=== PATIENT | male | born 1955 | race Caucasian/White ===

== ENCOUNTER 2025-02-08 08:07 | Emergency (ER) | payer MEDICARE, BC, SELFPAY ==
--- NOTE | 2025-02-08 08:10 | ED_ITS ---
HPI - Extremity Problem General Chief complaint: Extremity Problem,Nontraumatic Stated complaint: r thigh/knee pain Time Seen by Provider: 02/08/25 08:09 Source: patient Mode of arrival: ambulatory Limitations: no limitations History of Present Illness HPI Narrative: Stefano is a 69-year-old male patient presenting to the clinic today with complaints of right thigh pain x3 days. He reports he recently fractured his ribs on January 20 after having a syncopal episode. Recently traveled from [place] to [place] (2 weeks ago). He denies any chest pain or shortness of breath. States he developed pain in his right thigh with swelling and a lump 3 days ago. He is concerned for a blood clot. Related Data Home Medications ?Medication ?Instructions ?Recorded ?Confirmed ?Last Taken ?Type No Home Medications 02/08/25 02/08/25 U nknown History Allergies Allergy/AdvReac Type Severity Reaction Status Date / Time Penicillins Allergy Mild Hives Verified 02/08/25 08:25 Review of Systems Review of Systems: Pertinent positives per HPI. Patient denies any fever, chills, rash, headache, visual changes, dizziness, cough, runny nose, sore throat, shortness of breath, chest pain, palpitations, nausea, vomiting, diarrhea, constipation, abdominal pain, or any urinary issues. PMFSH Comments At the time of my signature, I reviewed and agree with the nursing past medical, surgical, social, and family history. There is no relevant family history pertinent to the patient complaint. Exam Narrative: General: Well-developed, well nourished, in no apparent distress Head: Normocephalic, atraumatic. Cardio: Regular rate and rhythm, s1 and s2 normal, no murmur appreciated. Resp: Clear to auscultation bilaterally, no rhonchi, rales, wheezing or rubs. Musculoskeletal: No deformity, tender to palpation with small mass area to the right anterior medial thigh, grossly normal range of motion, muscle strength strong and equal, peripheral pulse strong, no edema, no cyanosis, normal gait and station Course Course Level of Care: Express Care Visit Transfer Transfered to: [facility] Transportation: Other (Private car) Transfer rationale: Right anterior thigh mass-rule out DVT Accepting physician: Dr. Santiago Transfer comments: POV MDM MDM Narrative Medical decision making narrative: At the time of visit patient is resting comfortably on the exam table. Patient appears to be nontoxic. Complaints of right thigh pain x3 days. He reports he recently fractured his ribs on January 20 after having a syncopal episode. He denies any chest pain or shortness of breath. States he developed pain in his right thigh with swelling and a lump 3 days ago. He is concerned for a blood clot. On exam patient has tender to palpation with small mass area to the right anterior medial thigh, no edema in the right lower extremity. Patient recently traveled 2 weeks ago from [place] to [facility] and has had a recent rib fracture. Plan: Recommend transfer to the ER for further evaluation rule out DVT. Patient agrees and would like to go to [facility] emergency room. Contacted Dr. Sandy at [facility] and he accepts patient for transfer. Patient to drive himself via POV Differential Diagnosis Differential Diagnosis: Differential diagnostic considerations for extremity problems include sprain/strain, fracture, DVT, herpes zoster, gout, cellulitis, superficial thrombophlebitis, physiologic edema. Discharge Plan Discharge Clinical Impression: Acute pain of right thigh Patient Disposition: Acute Care Hospital Condition: Stable Instructions: Antibiotic Form Patient Language: Indonesian Prescriptions: No Action No Home Medications Follow-up/Referrals: UNKNOWN,DOCTOR [Non-Staff] Time of Disposition: 08:32 Quality NIHSS Nursing Documentation ED NIHSS nursing documentation: reviewed/agree
[2025-02-08 08:21] VITALS: BP 127/83; PULSE 79; RESP 20; TEMP 36.4; O2SAT 100
== END 2025-02-08 08:31 | disposition short-term general hospital (02) ==
PROVIDERS: Emergency Provider Nurse Practitioner Family
DX: M79.651 Pain in right thigh (principal); M25.561 Pain in right knee
CPT/HCPCS: 99212; G0463

== ENCOUNTER 2025-02-08 08:57 | Observation (INO) | payer MEDICARE, SELFPAY ==
[2025-02-08] VITALS (11 sets, daily range): BP systolic 121–144; BP diastolic 71–91; PULSE 63–103; RESP 13–19; TEMP 36.5–36.8; O2SAT 97–100; BMI 29.0
--- NOTE | ~2025-02-08 | CT_ITS ---
CTA CHEST CLINICAL HISTORY: dvt RLE, chest congestion/sob . COMPARISON: None TECHNIQUE: Helical CTA performed from thoracic inlet to upper abdomen IV contrast information not listed in PACS Coronal, sagittal reformats. Multiplanar MIPS CT images acquired with automatic exposure control for dose reduction DLP: 556 mGy-cm FINDINGS: Pulmonary arteries: Large PE bronchus intermedius extending into right middle lobe and extensively into lower lobe segments. Small PE left lower lobe segments. Thoracic Aorta: No dissection or aneurysm. Heart/pericardium: Cardiomegaly. Coronary artery calcification. RV/LV ratio: Minimally elevated at 1.1. Lungs/Pleura: Bibasilar dependent changes. Tracheobronchial tree: Patent. Nodes: No enlarged nodes. Bones: No acute bony abnormality. Soft tissues: Unremarkable. Visualized upper abdomen: Hepatomegaly, with steatosis. Severe pancreatic atrophy IMPRESSION: 1. Large PE right lung. 2. Suspect mild right heart strain. Reviewed, dictated and finalized at location R. GRINDING TECHNICIAN
--- NOTE | ~2025-02-08 | US_ITS ---
EXAMINATION:US venous doppler LE RT INDICATION:Pain and swelling of the right leg TECHNIQUE: Multiple grayscale, color flow and Doppler images of the right lower extremity deep venous systems were obtained and reviewed. COMPARISON:No prior studies for comparison. FINDINGS: There is deep venous thrombosis of the right common femoral vein. There is superficial venous thrombosis of the greater saphenous vein. The superficial femoral and popliteal veins demonstrate normal respiratory variation, augmentation and compressibility. Color flow is also seen within the posterior tibial, peroneal, and profunda veins. IMPRESSION: 1: Partially occlusive deep venous thrombosis right common femoral vein. 2: Superficial venous thrombosis greater saphenous vein. Reviewed, dictated and finalized at location O. ON PICTURE CRITIC
--- NOTE | ~2025-02-08 | US_ITS ---
US venous doppler LE LT INDICATION: Left lower extremity pain and swelling. COMPARISON: None. TECHNIQUE: The deep veins of the left lower extremity were evaluated with Duplex Doppler, color Doppler, and high-resolution B-mode sonography. Evaluated veins include the common femoral, femoral, and popliteal veins. The calf veins were also evaluated. Compression and augmentation maneuvers were performed. FINDINGS: The deep veins of the left lower extremity were compressible and demonstrated spontaneous phasic waveforms with an appropriate response to augmentation maneuvers. The visualized calf veins were patent. IMPRESSION: There was no sonographic evidence of deep vein thrombosis in the left lower extremity. Reviewed, dictated and finalized at location S. LY ENGAGEMENT SPECIALIST IMPRESSION: There was no sonographic evidence of deep vein thrombosis in the left lower ext remity.
--- OUTSIDE RECORDS SUMMARY | 2025-02-08 09:06 | XMS_ITS | Clinical Summary ---
Author Organization [employer] [facility] lin Address [address] [facility] [place] [address] Care Team Providers Care Drawer In Jacquard Loom Name Role Phone No, Pcp ANIMAL ECOLOGIST Primary Care Provider Unavailabl e Allergies No known active allergies Medications CRESTOR 20 mg tablet 11 10/19/2014 Active Immunizations Immunization Administration Dates Next Due Fluarix Quadrivalent Prefilled Syringe 6 Fluzone Quadrivalent Multi-dose Vial (36+ months ) 12/12/2014 Social History Tobacco Use Types Packs/Day Years Used Date Smoking Tobacco: Never Assessed Sex and Gender Information Value Date Recorded Sex Assigned at Not on file Legal Sex Male 11:17 AM EST Gender Identity Not on file Sexual Orientation Not on file Plan of Treatment Not on file Medical Devices Not on file Insurance [facility] [employer] PLANS [place] [id number] Care Teams Drawer In Jacquard Loom Relationship Specialty Start Date End Date No, Pcp, ANIMAL ECOLOGIST N/A Do not use PCP - General 12/12/14
--- NOTE | 2025-02-08 09:35 | ED.EXTPRO ---
HPI - Extremity Problem General Chief complaint: Extremity Problem,Nontraumatic <DEX Nash Last Filed: 02/08/25 17:52> Stated complaint: Swelling/ pain to right leg <DEX Nash Last Filed: 02/08/25 17:52> Time Seen by Provider: 02/08/25 09:11 <DEX Nash Last Filed: 02/08/25 17:52> Source: patient <DEX Nash Last Filed: 02/08/25 17:52> Mode of arrival: ambulatory <DEX Nash Last Filed: 02/08/25 17:52> Limitations: no limitations <DEX Nash Last Filed: 02/08/25 17:52> History of Present Illness HPI Narrative: Patient is a 69 y/o male who presents to the ED with c/o R thigh pain. Patient reports he has had pain throughout his right medial thigh for the past couple of days. States it has been swollen. He iced the leg last night and noted some improvement. Reports some discomfort throughout the thigh. Notes he recently broke a rib on Jan 20 and has been relatively immobile since then. Typically very active. Also reports he drives/travels to/from [place] ([address]) every month to spend time with his grandchildren. Denies history of blood clots. Does note he recently had a URI and has had some cough/chest congestion associated with this. Denies significant SOB/CP. <DEX Nash Last Filed: 02/08/25 17:52> Related Data Home medications: Home Medications ?Medication ?Instructions ?Recorded ?Confirmed ?Last Taken ?Type aspirin 81 mg tablet,delayed 81 mg PO DAILY 02/08/25 02/08/25 02/07/25 History release (Adult Low Dose Aspirin) diphenhydramine HCl 25 mg capsule 50 mg PO HS 02/08/25 02/08/25 Unknown History (Allergy (diphenhydramine)) multivitamin (Daily Multi-Vitamin 1 tablet PO DAILY 02/08/25 02/08/25 02/07/25 History tablet) rosuvastatin 10 mg tablet 10 mg PO DAILY 02/08/25 02/08/25 02/07/25 History tadalafil 10 mg tablet (Cialis) 10 mg PO DAILY PRN sexual activity 02/08/25 02/08/25 Unknown History tamsulosin 0.4 mg capsule 0.4 mg PO DAILY 02/08/25 02/08/25 02/07/25 History <Florinda Denton PA-C - Last Filed: 02/08/25 17:52> Allergies/Adverse reactions: Allergies Allergy/AdvReac Type Severity Reaction Status Date / Time Penicillins Allergy Mild Hives Verified 02/08/25 16:19 <Florinda Denton PA-C - Last Filed: 02/08/25 17:52> Review of Systems Review of Systems: All systems reviewed & are unremarkable except as noted in HPI. <Florinda Denton PA-C - Last Filed: 02/08/25 17:52> All systems reviewed & are unremarkable except as noted in HPI and below <Florinda Denton PA-C - Last Filed: 02/08/25 17:52> [facility] Past Medical History Medical History: Medical History Broken rib Cataracts, bilateral Arthritis Depression Anxiety <DEX Nash Last Filed: 02/08/25 17:52> Surgical History Surgical History: Surgical History H/O knee surgery meniscus repair, left H/O anterior cruciate ligament surgery <Florinda Denton PA-C - Last Filed: 02/08/25 17:52> Family History Family History: Family History Father Congestive heart failure Cerebrovascular accident History of blood clots Acute myocardial infarction Grandparent Diabetes mellitus <DEX Nash Last Filed: 02/08/25 17:52> Social History Social History: Social History Smoking status: Never smoker Alcohol intake: current Drinks per week: 2 Substance use: never Lack of Transportation: No Lack of Food: Never True Current Housing: I Have Housing Concerned About Future Housing: No Difficulty Paying Gas/Electric Bills: No Difficulty Paying for Meds: No Currently Unemployed: No Education: Master's Degree or Higher Difficulty w/ Childcare or Family Care: No Spiritual care concerns: No <Florinda Denton PA-C - Last Filed: 02/08/25 17:52> Exam Narrative: GENERAL: Well appearing, well-nourished, non-toxic, in no acute distress. HEAD: Normocephalic, atraumatic. RESPIRATORY: Airway patent, respirations nonlabored. Clear to auscultation bilaterally, no rales, rhonchi, wheezing. CARDIOVASCULAR: Regular rate and rhythm without murmurs, rubs, or gallops. Pedal pulses are intact and easily palpable MUSCULOSKELETAL: Moves all extremities. No gross deformities. Area of induration/focal TTP to R medial thigh, no significant warmth/erythema. Sensation intact throughout RLE SKIN: Warm, dry, normal color. NEURO: A&O X3. Speech clear. Cranial nerves II-XII grossly intact. Steady gait. No ataxic movements. PSYCHIATRIC: Appropriate mood and affect. Normal interaction. <Florinda Denton PA-C - Last Filed: 02/08/25 17:52> Course ELECTRONIC DESIGN ENGINEER/PA Physician Supervision This visit was performed by both a physician and an APC. I performed all aspects of the MDM as documented. <Harley Sandy MD - Last Filed: 02/08/25 18:05> Vital Signs Vital signs: Vital Signs Temperature 97.9 F 02/08/25 09:10 Pulse Rate 73 02/08/25 09:10 Respiratory Rate 16 02/08/25 09:10 Blood Pressure 144/90 H 02/08/25 09:10 Pulse Oximetry 100 02/08/25 09:10 Oxygen Delivery Room Air 02/08/25 09:10 Temperature 98.2 F 02/08/25 13:49 Pulse Rate 103 H 02/08/25 17:00 Respiratory Rate 14 02/08/25 15:25 Blood Pressure 122/78 02/08/25 15:25 Pulse Oximetry 97 02/08/25 17:00 Oxygen Delivery Room Air 02/08/25 17:00 <Florinda Denton PA-C - Last Filed: 02/08/25 17:52> Vital Signs Temperature 97.9 F 02/08/25 09:10 Pulse Rate 73 02/08/25 09:10 Respiratory Rate 16 02/08/25 09:10 Blood Pressure 144/90 H 02/08/25 09:10 Pulse Oximetry 100 02/08/25 09:10 Oxygen Delivery Room Air 02/08/25 09:10 Temperature 98.2 F 02/08/25 13:49 Pulse Rate 103 H 02/08/25 17:00 Respiratory Rate 14 02/08/25 15:25 Blood Pressure 122/78 02/08/25 15:25 Pulse Oximetry 97 02/08/25 17:00 Oxygen Delivery Room Air 02/08/25 17:00 <Harley Sandy MD - Last Filed: 02/08/25 18:05> MDM MDM Narrative Medical decision making narrative: Patient presented to ED with area of swelling, pain, redness to right medial thigh over the past couple days. Recent travel and immobilization. Concern for DVT. Vital signs are stable upon arrival. Patient is in no acute distress. Denies previous history of DVT. Venous Doppler ultrasound of right lower extremity was obtained: IMPRESSION: 1: Partially occlusive deep venous thrombosis right common femoral vein. 2: Superficial venous thrombosis greater saphenous vein. Updated patient on this and need for anticoagulation. Laboratory studies obtained and fairly unremarkable. Stable coags. Troponin undetectable. BNP within normal range. EKG without significant concerning changes. CTA of chest was obtained and unfortunately does show bilateral PE, larger on the right side. Minimally elevated RV:LV ratio 1.1. Will start heparin and discus with hospitalist for admission. Patient has a primary care doctor in [place], is not planning to return to [place] until February 25. He is in agreement with plan for admission Discussed case with Julia Ro NP hospitalist, accepted patient for admission <Florinda Denton PA-C - Last Filed: 02/08/25 17:52> Differential Diagnosis Differential Diagnosis: DVT, superficial thrombophlebitis, muscle strain, cellulitis <Florinda Denton PA-C - Last Filed: 02/08/25 17:52> Medical Records I have reviewed the following patient records and this information was taken into consideration when formulating the assessment and plan.: previous labs, previous ER visits, previous hospitalizations and previous clinic visits <Florinda Denton PA-C - Last Filed: 02/08/25 17:52> Lab Data MDM Lab Attestation statement: I personally reviewed the patient's lab results. <Florinda Denton PA-C - Last Filed: 02/08/25 17:52> Result diagrams: 02/08/25 11:34 02/08/25 11:34 <Florinda Denton PA-C - Last Filed: 02/08/25 17:52> Labs: Lab Results 02/08/25 Range/Units 11:34 WBC 8.7 (4.5-10.0) K/mm3 RBC 4.73 (4.6-6.20) M/mm3 Hgb 14.6 (14.0-18.0) g/dL Hct 43.2 (42.0-52.0) % MCV 91.3 (80-100) fl MCH 30.9 (26-34) pg MCHC 33.8 (32-36) g/dl RDW 12.4 (11.5-14.5) % Plt Count 158 (150-375) k/mm3 MPV 10.1 (7.4-10.4) fl Immature Gran % (Auto) 0.8 H (0-0.5) % Neut % (Auto) 46.5 (45.5-73.1) % Lymph % (Auto) 38.8 (18.3-44.2) % [place] % (Auto) 8.2 (2.6-8.5) % Eos % (Auto) 4.8 H (0-4.4) % Baso % (Auto) 0.9 (0.2-1.2) % Lymph # (Auto) 3.36 H (0.9-3.2) K/mm3 [place] # (Auto) 0.7 H (0.1-0.6) K/mm3 Eos # (Auto) 0.4 H (0-0.3) K/mm3 Baso # (Auto) 0.1 (0.0-0.1) K/mm3 Abs Immat Gran (auto) 0.07 H (0.00-0.031) K/mm3 Absolute Neuts (auto) 4.0 (1.3-6.7) K/mm3 Absolute Nucleated RBC 0.000 (0.0-0.012) K/mm3 Nucleated RBC % 0.0 (0.0-0.2) % PT 14.5 (11.1-14.7) Seconds INR 1.1 APTT 27.5 (22.3-36.8) Seconds Sodium 139 (137-145) mmol/L Potassium 4.6 (3.4-5.0) mmol/L Chloride 104 (98-107) mmol/L Carbon Dioxide 30 (22-30) mmol/L Anion Gap 5 (4-12) mmol/L BUN 15 (9-20) mg/dL Creatinine 0.85 (0.7-1.3) mg/dL Estim Creat Clear Calc 72 ml/min Estimated GFR > 60 (59 - ) Glucose 103 (65-110) mg/dL Calcium 9.5 (8.4-10.2) mg/dL Total Bilirubin 0.8 (0.2-1.3) mg/dL AST 31 (17-59) U/L ALT 23 (6-50) U/L Alkaline Phosphatase 84 (38-126) U/L Troponin I < 0.012 (0.000-0.034) ng/mL NT-Pro-B Natriuret Pep 35 (19.9-100) pg/mL Total Protein 8.4 H (6.3-8.2) g/dL Albumin 4.4 (3.5-5.1) g/dL <Florinda Denton PA-C - Last Filed: 02/08/25 17:52> Lab Results 02/08/25 Range/Units 11:34 WBC 8.7 (4.5-10.0) K/mm3 RBC 4.73 (4.6-6.20) M/mm3 Hgb 14.6 (14.0-18.0) g/dL Hct 43.2 (42.0-52.0) % MCV 91.3 (80-100) fl MCH 30.9 (26-34) pg MCHC 33.8 (32-36) g/dl RDW 12.4 (11.5-14.5) % Plt Count 158 (150-375) k/mm3 MPV 10.1 (7.4-10.4) fl Immature Gran % (Auto) 0.8 H (0-0.5) % Neut % (Auto) 46.5 (45.5-73.1) % Lymph % (Auto) 38.8 (18.3-44.2) % [place] % (Auto) 8.2 (2.6-8.5) % Eos % (Auto) 4.8 H (0-4.4) % Baso % (Auto) 0.9 (0.2-1.2) % Lymph # (Auto) 3.36 H (0.9-3.2) K/mm3 [place] # (Auto) 0.7 H (0.1-0.6) K/mm3 Eos # (Auto) 0.4 H (0-0.3) K/mm3 Baso # (Auto) 0.1 (0.0-0.1) K/mm3 Abs Immat Gran (auto) 0.07 H (0.00-0.031) K/mm3 Absolute Neuts (auto) 4.0 (1.3-6.7) K/mm3 Absolute Nucleated RBC 0.000 (0.0-0.012) K/mm3 Nucleated RBC % 0.0 (0.0-0.2) % PT 14.5 (11.1-14.7) Seconds INR 1.1 APTT 27.5 (22.3-36.8) Seconds Sodium 139 (137-145) mmol/L Potassium 4.6 (3.4-5.0) mmol/L Chloride 104 (98-107) mmol/L Carbon Dioxide 30 (22-30) mmol/L Anion Gap 5 (4-12) mmol/L BUN 15 (9-20) mg/dL Creatinine 0.85 (0.7-1.3) mg/dL Estim Creat Clear Calc 72 ml/min Estimated GFR > 60 (59 - ) Glucose 103 (65-110) mg/dL Calcium 9.5 (8.4-10.2) mg/dL Total Bilirubin 0.8 (0.2-1.3) mg/dL AST 31 (17-59) U/L ALT 23 (6-50) U/L Alkaline Phosphatase 84 (38-126) U/L Troponin I < 0.012 (0.000-0.034) ng/mL NT-Pro-B Natriuret Pep 35 (19.9-100) pg/mL Total Protein 8.4 H (6.3-8.2) g/dL Albumin 4.4 (3.5-5.1) g/dL <Harley Sandy MD - Last Filed: 02/08/25 18:05> Imaging Data Attestation: I personally reviewed and interpreted this imaging study as follows: <Florinda Denton PA-C - Last Filed: 02/08/25 17:52> Radiologist's impression: ITS Impressions Venous Doppler Study 02/08/25 10:15 IMPRESSION: 1: Partially occlusive deep venous thrombosis right common femoral vein. 2: Superficial venous thrombosis greater saphenous vein. Chest CTA 02/08/25 12:49 IMPRESSION: 1. Large PE right lung. 2. Suspect mild right heart strain. <Florinda Denton PA-C - Last Filed: 02/08/25 17:52> ITS Impressions Venous Doppler Study 02/08/25 10:15 IMPRESSION: 1: Partially occlusive deep venous thrombosis right common femoral vein. 2: Superficial venous thrombosis greater saphenous vein. Chest CTA 02/08/25 12:49 IMPRESSION: 1. Large PE right lung. 2. Suspect mild right heart strain. <Harley Sandy MD - Last Filed: 02/08/25 18:05> ECG Data EKG #1: Attestation: I personally reviewed and interpreted this ECG as follows: <Florinda Denton PA-C - Last Filed: 02/08/25 17:52> ECG completion date: 02/08/25 <Florinda Denton PA-C - Last Filed: 02/08/25 17:52> ECG completion time: 10:44 <Florinda Denton PA-C - Last Filed: 02/08/25 17:52> normal rate (66), sinus rhythm and non-specific ST changes <Florinda Denton PA-C - Last Filed: 02/08/25 17:52> Discharge Plan Discharge Clinical Impression: Bilateral pulmonary embolism, Superficial thrombophlebitis of right leg Acute deep vein thrombosis (DVT) of right lower extremity Qualifiers: Affected thrombotic vein of extremity: femoral Qualified Code(s): I82.411 - Acute embolism and thrombosis of right femoral vein <Florinda Denton PA-C - Last Filed: 02/08/25 17:52> Patient Disposition: Still a Patient <Florinda Denton PA-C - Last Filed: 02/08/25 17:52> Condition: Stable <Florinda Denton PA-C - Last Filed: 02/08/25 17:52>
--- OUTSIDE RECORDS SUMMARY | 2025-02-08 09:50 | XMS_ITS | Clinical Summary ---
Author Organization [employer] [facility] lin Address [address] [facility] [place] [address] Care Team Providers Care Percussion Tuner Name Role Phone No, Pcp PRODUCT GRADER Primary Care Provider Unavailabl e Allergies No [...] file Medical Devices Not on file Insurance [facility] [employer] PL[employer] [place] [id number] Care Teams Percussion Tuner Relationship Specialty Start Date End Date No, Pcp, PRODUCT GRADER N/A Do not use PCP - General 12/12/14
--- NOTE | 2025-02-08 10:34 | ECG_ITS ---
Test Date: 2025-02-08 10:44:58 Measurements Intervals [place] Rate: 66 P: 17 OK: 226 QRS: -17 QRSD: 92 T: -3 QT: 406 QTc: 427 Interpretive Statements SINUS RHYTHM WITH FIRST DEGREE AV BLOCK DELAYED PRECORDIAL R/S TRANSITION VOLTAGE CRITERIA FOR LVH CONSIDER INFERIOR INFARCT, AGE INDETERMINATE BASELINE ARTIFACT- I, II, AVR, AVL, AVF, V1-V3, V6 ABNORMAL ECG No previous ECG available for comparison Electronically Signed On 02-08-2025 22:08:48 CLAY PUDDLER by Gio Rose D.O.
[2025-02-08 11:42] LABS: Hematocrit 43.2 % (42.0-52.0); Hemoglobin 14.6 g/dL (14.0-18.0); Immature Granulocyte Percent A 0.8 % (0-0.5); Lymphocytes Absolute Auto 3.36 K/mm3 (0.9-3.2); Mean Corpuscular HGB Conc 33.8 g/dl (32-36); Mean Corpuscular Hemoglobin 30.9 pg (26-34); Mean Corpuscular Volume 91.3 fl (80-100); Nucleated Red Blood Cells Absolute Auto 0.000 K/mm3 (0.0-0.012); Nucleated Red Blood Cells Perc 0.0 % (0.0-0.2); Platelet Count Result 158 k/mm3 (150-375); Red Blood Count 4.73 M/mm3 (4.6-6.20); White Blood Count 8.7 K/mm3 (4.5-10.0)
[2025-02-08 11:52] LABS: INR 1.1; Prothrombin Time 14.5 Seconds (11.1-14.7)
[2025-02-08 11:53] LABS: Partial Thromboplastin Time 27.5 Seconds (22.3-36.8)
[2025-02-08 11:55] LABS: Alanine Aminotransferase 23 U/L (6-50); Albumin Level 4.4 g/dL (3.5-5.1); Alkaline Phosphatase 84 U/L (38-126); Anion Gap 5 mmol/L (4-12); Aspartate Amino Transferase 31 U/L (17-59); Bilirubin,Total 0.8 mg/dL (0.2-1.3); Blood Urea Nitrogen 15 mg/dL (9-20); Calcium 9.5 mg/dL (8.4-10.2); Carbon Dioxide 30 mmol/L (22-30); Chloride 104 mmol/L (98-107); Estimated CRCL calculation 72 ml/min; Estimated Glomerular Filt Rate > 60; Glucose 103 mg/dL (65-110); Potassium 4.6 mmol/L (3.4-5.0); Sodium 139 mmol/L (137-145); Total Protein 8.4 g/dL (6.3-8.2)
[2025-02-08 12:05] LABS: NT Pro B Type Natriuretic Pept 35 pg/mL (19.9-100); Troponin I < 0.012 ng/mL (0.000-0.034)
[2025-02-08] MEDS: HEPARIN SOD/D5W 100 UNITS/ML 25,000 UNITS/250 ML BAG 14 UNITS IV CONT (13:40)
--- NOTE | 2025-02-08 15:15 | PC.NURSE ---
Report given to anabella VILLASENOR all questions answered
--- NOTE | 2025-02-08 15:16 | PM.IMHP2 ---
H&P: HPI History of Present Illness Date/Time: 02/08/25 15:16 Chief Complaint: Warmth and Pain to RLE Narrative: 69 y/o M with PMH of arthritis, ACL/meniscus surgery, and anxiety/depression presents here with warmth and tenderness to the right thigh. The patient presents here on 02/08 for further evaluation right thigh pain and heat. He reports he 1st noticed the changes in his right inner thigh on 02/05. He noticed his inner lower thigh was hot to the touch and slightly swollen. He denies any associated erythema. He reports he recently had a syncopal episode when he got up in the middle the night to urinate. While he was standing there to go to the bathroom he passed out, was evaluated at a hospital in [place] where he is from. He is currently in town visiting family for the holidays. During that evaluation he was found to have a rib fracture and his syncope was attributed to stress and orthostatic hypotension. Since then he has traveled by car from [place] to [place] starting on 01/25. Due to the rib fracture he has been less mobile. No active malignancies or recent surgery. He does report some mild shortness of breath which he has attributed to cold. He reports he has had some cough, wheezing, sneezing. He denies any dizziness, lightheadedness, or chest pain at this time. No history of blood clots. Initial VS at presentation: 97.9? F, HR 73, R 16 144/90, and 100% on RA. ED workup showed: No leukocytosis, no anemia, normal coags, no significant electrolyte derangements, creatinine 0.85 and GFR >60, initial troponin negative, BNP 35. Venous Doppler study of his right lower extremity showed a partially occlusive DVT of the right common femoral vein, superficial venous thrombus of the greater saphenous vein. That CTA of the chest showed a large PE of the right lung and a small PE of the low left lower lobe segments, cardiomegaly, are V LV ratio minimally elevated at 1:1, suspect mild right heart strain. Review of Systems Review of Systems: All systems reviewed & are unremarkable except as noted in HPI and below [facility] Past Medical History Medical History Broken rib Cataracts, bilateral Arthritis Depression Anxiety Surgical History Surgical History H/O knee surgery meniscus repair, left H/O anterior cruciate ligament surgery Family History Family History Father Congestive heart failure Cerebrovascular accident History of blood clots Acute myocardial infarction Grandparent Diabetes mellitus Social History Social History Smoking status: Never smoker Alcohol intake: current Drinks per week: 2 Substance use: never Lack of Transportation: No Lack of Food: Never True Current Housing: I Have Housing Concerned About Future Housing: No Difficulty Paying Gas/Electric Bills: No Difficulty Paying for Meds: No Currently Unemployed: No Education: Master's Degree or Higher Difficulty w/ Childcare or Family Care: No Spiritual care concerns: No Meds Home Medications and Allergies Home Medications ?Medication ?Instructions ?Recorded ?Confirmed ?Type aspirin 81 mg tablet,delayed 81 mg PO DAILY 02/08/25 02/08/25 History release (Adult Low Dose Aspirin) diphenhydramine HCl 25 mg capsule 50 mg PO HS 02/08/25 02/08/25 History (Allergy (diphenhydramine)) multivitamin (Daily Multi-Vitamin 1 tablet PO DAILY 02/08/25 02/08/25 History tablet) rosuvastatin 10 mg tablet 10 mg PO DAILY 02/08/25 02/08/25 History tadalafil 10 mg tablet (Cialis) 10 mg PO DAILY PRN sexual activity 02/08/25 02/08/25 History tamsulosin 0.4 mg capsule 0.4 mg PO DAILY 02/08/25 02/08/25 History Allergies Allergy/AdvReac Type Severity Reaction Status Date / Time Penicillins Allergy Mild Hives Verified 02/08/25 16:19 Vital Signs Vital Signs - 24 hr 02/08/25 09:10 02/08/25 10:11 02/08/25 10:52 Temperature 97.9 F Pulse Rate 73 67 64 Respiratory Rate 16 16 13 Blood Pressure 144/90 H 121/86 132/86 Pulse Oximetry 100 100 97 Oxygen Delivery Room Air 02/08/25 12:49 02/08/25 13:49 02/08/25 13:49 Temperature 98.2 F Pulse Rate 73 63 Respiratory Rate 18 18 Blood Pressure 135/91 H 138/91 H Pulse Oximetry 99 100 100 Oxygen Delivery Room Air Exam Const: General: comfortable and no acute distress Other: , male, nontoxic appearance HENMT: Face/Nose/Sinus: Normal nares present Mouth: Yes moist mucous membranes Eyes: General: appearance normal, both eyes and all related structures Sclera: sclerae normal Pupils: Equal, round and reactive pupils present EOM: EOMs intact bilaterally Resp: Effort & Inspection: normal respiratory effort Auscultation: clear to auscultation bilaterally Cardio: Rate: regular rate Rhythm: regular rhythm Other: S1-S2 present without murmur, rub, ectopy GI: Other: Abdomen soft, nondistended, nontender. Normoactive bowel sounds in all quadrants. Skin: General skin exam: normal color and no rashes or lesions noted Wounds: no wounds Neuro: Speech: normal speech Motor exam (neuro): 5/5 motor strength present throughout Sensory Exam: normal sensation Other: A&O x4 Extrem: Other: Skin swelling to the right medial/distal thigh with no associated redness, tenderness. DP pulses 1+ bilaterally. Psych: Mental Status: mental status grossly normal Affect: normal affect Other: Good insight and judgment, very pleasant Results Labs Labs: Short CBC 02/08/25 Range/Units 11:34 WBC 8.7 (4.5-10.0) K/mm3 Hgb 14.6 (14.0-18.0) g/dL Hct 43.2 (42.0-52.0) % Plt Count 158 (150-375) k/mm3 BMP 02/08/25 11:34 Sodium 139 Potassium 4.6 Chloride 104 Carbon Dioxide 30 BUN 15 Creatinine 0.85 Glucose 103 Calcium 9.5 Cardiac Enzymes 02/08/25 Range/Units 11:34 Troponin I < 0.012 (0.000-0.034) ng/mL Liver Function 02/08/25 Range/Units 11:34 Total Bilirubin 0.8 (0.2-1.3) mg/dL AST 31 (17-59) U/L ALT 23 (6-50) U/L Alkaline Phosphatase 84 (38-126) U/L Albumin 4.4 (3.5-5.1) g/dL Quality VTE Prophylaxis VTE prophylaxis: pharmacologic ordered Assessment and Plan Assessment and plan (1) Bilateral pulmonary embolism: Code(s): I26.99 - Other pulmonary embolism without acute cor pulmonale Status: Acute (2) Acute deep vein thrombosis (DVT) of right lower extremity: Qualifiers: Affected thrombotic vein of extremity: femoral Qualified Code(s): I82.411 - Acute embolism and thrombosis of right femoral vein Code(s): I82.401 - Acute embolism and thrombosis of unspecified deep veins of right lower extremity Status: Acute Plan Patient presented here with heat and tenderness to his right inner/lower thigh. Patient had recent long car travel from [place] to [place] a started on 01/25. Noted symptoms on 02/05. Has had mild shortness of breath, however has concurrent cold he attributed his symptoms to. None imaging obtained in the emergency department on 02/08 was significant for a partially occlusive DVT of the right common femoral vein and a superficial venous thrombus of the greater saphenous vein on the right. His chest CTA showed a large PE involving the bronchus intermedius extending into right middle lobe and extensively into lower lobe segments. Small PE left lower lobe segments. RV/LV ratio: Minimally elevated at 1.1, suspected mild right heart strain. Despite size of the PE and possible right heart strain, the patient remains hemodynamically stable. No hypoxia. Troponin negative. Patient is well-appearing on exam. The patient was offered possible discharge, however given he is from [place] and his PCP is back in [place] he would was more comfortable with monitoring and more expedited imaging given he will not be able to follow-up for some time still with his own PCP. -given possibility of right heart strain, obtain echo -monitor hemodynamic stability and O2 sats, currently stable -started on heparin gtt on 02/08, consider transitioning tomorrow pending echo results -check venous Doppler of the right lower extremity given presence of bilateral PEs and right lower extremity DVT Patient additionally reported cold-like symptoms for the past 8 days. Plan for viral PCR. Supportive measures including Mucinex, Tessalon Perles, lozenge, and Tylenol. Diet: Heart healthy GI Prophylaxis: N/a DVT Prophylaxis: Heparin gtt IV fluids: None Lines/Tubes: pIV Code Status: Full code Prior Studies I have reviewed the following patient records and this information was taken into consideration when formulating the assessment and plan.: previous labs, previous ER visits, previous hospitalizations and previous clinic visits Time Spent with Patient Time with patient: less than 45 minutes Hospitalist [facility] Advance Care Plan I have confirmed that the patient's Advanced Care Plan is present, code status is documented, or surrogate decision maker is listed in patient medical record.: Yes Medication Reconciliation I have utilized all available resources to obtain, update and review the patients current medications (includes all prescriptions, OTC, herbals, cannabis, and nutritional supplements).: Yes
--- NOTE | 2025-02-08 16:00 | ADMGEN ---
This patient, Stefano Humphrey, was admitted to Intensive Care Unit-1 at approximately at 1550. Patient/family oriented to hospital policies and general routines including ID bracelet, bed and alarms, visiting hours, pain management, procedures, bathroom and other care routines, personal items, smoking policy, room service/diet, and visiting hours. Information on how to activate the Rapid Response Team has been discussed. Patient/Family are encouraged to report perceived risks to care and to ask questions if they do not understand what they are told or what they should do.
[2025-02-08] MEDS: BENZOCAINE/MENTHOL (*BKC) 18 EA LOZENGE 1 LOZENGE PO (18:28)
[2025-02-08 19:31] LABS: Influenza A QL RT-PCR Negative (Negative); Influenza B QL RT-PCR Negative (Negative); RSV RNA, RT-PCR Negative (Negative); SARS-CoV-2 RNA PCR Negative (Negative)
[2025-02-08 20:06] LABS: Partial Thromboplastin Time 78.5 Seconds (22.3-36.8)
[2025-02-08] MEDS: diphenhydrAMINE HCl CAP 25 MG CAPSULE 50 MG PO (21:03)
[2025-02-08] MEDS: guaiFENesin 12 HR 600 MG TABCR PO (21:03)
[2025-02-09] VITALS (8 sets, daily range): BP systolic 114–138; BP diastolic 78–98; PULSE 58–75; RESP 12–17; TEMP 36.5–37.2; O2SAT 96–100
[2025-02-09 01:57] LABS: Hematocrit 39.4 % (42.0-52.0); Hemoglobin 13.3 g/dL (14.0-18.0); Immature Granulocyte Percent A 1.0 % (0-0.5); Lymphocytes Absolute Auto 2.77 K/mm3 (0.9-3.2); Mean Corpuscular HGB Conc 33.8 g/dl (32-36); Mean Corpuscular Hemoglobin 30.8 pg (26-34); Mean Corpuscular Volume 91.2 fl (80-100); Nucleated Red Blood Cells Absolute Auto 0.000 K/mm3 (0.0-0.012); Nucleated Red Blood Cells Perc 0.0 % (0.0-0.2); Platelet Count Result 165 k/mm3 (150-375); Red Blood Count 4.32 M/mm3 (4.6-6.20); White Blood Count 7.1 K/mm3 (4.5-10.0)
[2025-02-09 02:14] LABS: Partial Thromboplastin Time 89.7 Seconds (22.3-36.8)
[2025-02-09 02:21] LABS: Anion Gap 3 mmol/L (4-12); Blood Urea Nitrogen 19 mg/dL (9-20); Calcium 9.1 mg/dL (8.4-10.2); Carbon Dioxide 28 mmol/L (22-30); Chloride 105 mmol/L (98-107); Estimated CRCL calculation 70 ml/min; Estimated Glomerular Filt Rate > 60; Glucose 103 mg/dL (65-110); Potassium 4.4 mmol/L (3.4-5.0); Sodium 136 mmol/L (137-145)
--- NOTE | 2025-02-09 06:00 | ECHO_ITS ---
Patient Info Name: Stefano Humphrey Age: 69 years : 1955 Gender: Male Ht: 69 in Wt: 196 lbs BSA: 2.10 m2 HR: 61 bpm BP: 114 / 98 mmHg Technical Quality: Poor Exam Date: 02/09/2025 10:24 AM Patient Status: I Admit Date: 02/09/2025 Exam Type: CA echo dop color flow w con Complete two-dimensional, color flow and Doppler transthoracic echocardiogram is performed with contrast to opacify the left ventricle and to improve the deliniation of the left ventricle endocardial borders. Staff Referring Physician: Julia Ro Passenger Service Supervisor: Markos Jefferson III Attending Provider: Sander Case Contrast/Agitated Saline Contrast/Ag. Saline: Definity Amount: 2.00 ml Administered By: Markos Jefferson III Existing IV Access: Yes IV Access Condition: patent with no signs of infiltration Reason for Poor Study: poor echocardiographic windows Summary 1. Poor Apical windows. 2. Left ventricular systolic function is normal, estimated at 65-70. 3. Right ventricular chamber dimension is mildly enlarged. 4. Right ventricular systolic function is normal. 5. The aortic root size at the sinus of Valsalva is mildly dilated. Measures 4.1cm. Left Ventricle Left ventricular chamber dimension is normal. Left ventricular systolic function is normal, estimated at 65-70. There is no increased left ventricular wall thickness. Left ventricular septal wall motion is normal. The left ventricular diastolic function is grade I diastolic dysfunction. Right Ventricle Right ventricular chamber dimension is mildly enlarged. Right ventricular systolic function is normal. Left Atria Left atrial chamber dimension is normal. Right Atria Right atrial chamber dimension is normal. Aortic Valve The aortic valve is trileaflet. There is no aortic valve sclerosis. There is no aortic valve stenosis. There is no aortic valve regurgitation. Pulmonic Valve The pulmonic valve is normal. There is no pulmonic valve stenosis. There is no pulmonic regurgitation. Mitral Valve The mitral valve has normal leaflets. There is no mitral valve stenosis. There is no mitral valve regurgitation. Tricuspid Valve The tricuspid valve leaflets are normal. There is no significant tricuspid valve stenosis. There is no tricuspid valve regurgitation. Pericardium/Pleural The pericardium appears normal. There is no pericardial effusion. Inferior Vena Cava Normal inferior vena cava with >50% collapse upon inspiration consistent with normal right atrial pressure, 5 mmHg. Aorta The aortic root size at the sinus of Valsalva is mildly dilated. Measures 4.1cm. The prox ascending aorta size is normal. Left Ventricular Outflow Tract Name Value Normal LVOT 2D LVOT Diameter 2.4 cm LVOT Doppler LVOT Peak Velocity 87 cm/s LVOT Peak Gradient 3 mmHg LVOT Mean Gradient 2 mmHg LVOT VTI 16 cm LVOT VTI/AV VTI Ratio 0.9 LVOT Stroke Volume 73 ml LVOT CO 4.9 l/min LVOT CI 2.3 l/min/m2 Pulmonic Valve Name Value Normal PV Doppler PV Peak Velocity 87 cm/s PV Peak Gradient 3 mmHg PV Mean Gradient 2 mmHg Mitral Valve Name Value Normal MV Doppler MV Peak Gradient 2 mmHg MV Mean Gradient 1 mmHg MV Area (Cont Eq VTI) 4.3 cm2 MV Diastolic Function MV E Peak Velocity 51 cm/s MV A Peak Velocity 64 cm/s MV E/A 0.8 MV Decel Time (PW) 286 ms MV Annular TDI MV E/e' (Septal) 9.2 MV E/e' (Lateral) 5.1 MV E/e' (Average) 7.1 Tricuspid Valve Name Value Normal Estimated PAP/RSVP RA Pressure 5 mmHg <=5 Aortic Valve Name Value Normal AV Doppler AV Peak Velocity 108 cm/s AV Peak Gradient 5 mmHg AV Mean Gradient 2 mmHg AV VTI 18 cm AV Area (Cont Eq VTI) 4.1 cm2 >=3.0 AV Area (Cont Eq Rafael) 3.6 cm2 AV DI (Rafael) 0.81 AV Regurgitation 2D LVOT Area 4.5 cm2 Ventricles Name Value Normal LV Dimensions 2D/MM IVS Diastolic Thickness (2D) 0.8 cm 0.6-1.0 LVID Diastole (2D) 4.7 cm 4.2-5.8 LVIW Diastolic Thickness (2D) 0.8 cm 0.6-1.0 LVID Systole (2D) 2.9 cm 2.5-4.0 LVOT Diameter 2.4 cm LV Mass (2D Cubed) 114.14 g 88.00-224.00 LV Mass Index (2D Cubed) 54 g/m2 49-115 Relative Wall Thickness (2D) 0.34 <=0.42 LV Fractional Shortening/Ejection Fraction 2D/MM LV Fractional Shortening (2D) 40 % 25-43 LV EF (2D Teichholz) 68 % LV Diastolic Volume (4C MOD) 72 ml LV EF (4C MOD) 74 % LV Diastolic Volume (2C MOD) 81 ml LV EF (2C MOD) 72 % LV Diastolic Volume (BP MOD) 76 ml 62-150 LV Diastolic Volume Index (BP MOD) 36 ml/m2 34-74 LV Systolic Volume (BP MOD) 22 ml 21-61 LV Systolic Volume Index (BP MOD) 10 ml/m2 11-31 LV EF (BP MOD) 71 % 52-72 LV Diastolic Length (4C) 7.3 cm LV Systolic Length (4C) 5.5 cm LV Stroke Volume (4C MOD) 53 ml Report Signatures
[2025-02-09] MEDS: HEPARIN SOD/D5W 100 UNITS/ML 25,000 UNITS/250 ML BAG 14 UNITS IV CONT (06:23)
[2025-02-09] MEDS: TAMSULOSIN HCL 0.4 MG CAPSULE PO (09:49)
[2025-02-09] MEDS: guaiFENesin 12 HR 600 MG TABCR PO (09:50)
[2025-02-09] MEDS: MULTIVITAMINS THERAPEUTIC TAB (*BKC) 1 TABLET PO (09:50)
[2025-02-09] MEDS: ASPIRIN 81 MG ENTERIC TABLET PO (09:50)
[2025-02-09] MEDS: ROSUVASTATIN 10 MG TABLET PO (09:50)
[2025-02-09] MEDS: PERFLUTREN LIPID MICROSPHERES 1.5 ML VIAL DILUTED TO 10 ML TOTAL VOLUME IV PUSH (11:17)
--- NOTE | 2025-02-09 11:17 | IVDEFINITY ---
Prior to administration of IV Definity the patient was educated on the risks and benefits of the imaging enhancing agent including potential adverse side effects. The patient verbalized understanding. Allergies were verified. No exclusion criteria were identified and at least one of the following inclusion criteria were met: 1) physician request, 2) patient technically difficult to image (per the [place] [employer] Echocardi[employer] guidelines of two or more segments not discernable within the apical view), or 3) questionable left ventricular function. ?
--- NOTE | 2025-02-09 13:36 | PM.DS ---
DS: Admitting Diagnosis Discharge Date 02/09/2025 Admitting Diagnosis Right leg pain DS: Discharge Diagnosis Discharge Diagnosis (1) Acute deep vein thrombosis (DVT) of right lower extremity: Qualifiers: Affected thrombotic vein of extremity: femoral Qualified Code(s): I82.411 - Acute embolism and thrombosis of right femoral vein Code(s): I82.401 - Acute embolism and thrombosis of unspecified deep veins of right lower extremity Status: Acute (2) Superficial thrombophlebitis of right leg: Code(s): I80.01 - Phlebitis and thrombophlebitis of superficial vessels of right lower extremity Status: Acute (3) Bilateral pulmonary embolism: Code(s): I26.99 - Other pulmonary embolism without acute cor pulmonale Status: Acute DS: Summary Hospital Course Hospital Course: Please refer to H and P via Julia Ro NP on 02/08/2025. Since admission, the patient has not had any shortness of breath, no chest pain, no cough. He only reports persistent tenderness at the swelling in his right inner thigh. It has not worsened. His vitals remain stable with blood pressure 136/80, O2 saturation 98% on room air, afebrile, respirations 12, breathing comfortably, heart rate 75. Echocardiogram demonstrates normal EF at 70% estimated, right ventricular chamber mildly enlarged, right ventricular systolic function normal, mildly dilated aortic root. Grade 1 diastolic dysfunction. Patient feels well to return home. He will be discharged on therapeutic dosing of Eliquis 10 mg p.o. b.i.d. for 7 days followed by 5 mg p.o. b.i.d. daily. He will hold aspirin during this time. He has been educated about the side effects, risks versus benefits. All of his questions and concerns were answered satisfaction. While I advised the patient to see his primary care within a week he is going to return home to [place] on February 25 and will see his PCP immediately for further evaluation/follow-up. He is discharged in stable condition on 02/09/2025. The patient was full code during the admission. Status at Discharge Overall status at discharge: patient is back to baseline Time Spent with Patient Time attestation: Total time spent providing and/or coordinating discharge services: Time spent: Greater than 30 minutes Exam Const: General: comfortable and no acute distress Other: A&O x3 HENMT: Mouth: Yes moist mucous membranes Eyes: Pupils: Equal, round and reactive pupils present Neck: Neck: supple Resp: Effort & Inspection: normal respiratory effort Auscultation: clear to auscultation bilaterally Cardio: Rate: regular rate Rhythm: regular rhythm Heart sounds: no gallops GI: Inspection: non-distended GI Palp: Yes Soft to palpation Neuro: Motor exam (neuro): 5/5 motor strength present throughout Extrem: General: no edema DS: Data Data Completed and Pending Labs on day of discharge: Labs from last 24 hours 02/09/25 02/08/25 02/08/25 01:51 19:21 18:51 WBC 7.1 RBC 4.32 L Hgb 13.3 L Hct 39.4 L MCV 91.2 MCH 30.8 MCHC 33.8 RDW 12.6 Plt Count 165 MPV 10.2 Immature Gran % (Auto) 1.0 H Neut % (Auto) 44.5 L Lymph % (Auto) 39.0 [place] % (Auto) 7.7 Eos % (Auto) 6.5 H Baso % (Auto) 1.3 H Lymph # (Auto) 2.77 [place] # (Auto) 0.6 Eos # (Auto) 0.5 H Baso # (Auto) 0.1 Abs Immat Gran (auto) 0.07 H Absolute Neuts (auto) 3.2 Absolute Nucleated RBC 0.000 Nucleated RBC % 0.0 APTT 89.7 H 78.5 H Sodium 136 L Potassium 4.4 Chloride 105 Carbon Dioxide 28 Anion Gap 3 L BUN 19 Creatinine 0.87 Estim Creat Clear Calc 70 Estimated GFR > 60 Glucose 103 Calcium 9.1 Influenza A (RT-PCR) Negative Influenza B (RT-PCR) Negative RSV (RT-PCR) Negative SARS-CoV-2 RNA (RT-PCR) Negative Discharge Plan Discharge Attending physician on discharge: Phyllis Vasquez Discharging Clinician: Phyllis Vasquez Patient Disposition: Home Activity: june shower Diet: as tolerated Patient Instructions: Antibiotic Form Patient Language: Faroese Stand Alone Forms: General Discharge Information Follow-up/Referrals: PHYSICIAN NOT ON STAFF,NONSTAFF [Primary Care Provider] Referral Note: f/u with PCP in [place] Discharge Medications: New Eliquis DVT-PE Treat 30D Start 5 mg (74 tabs) tablets,dose pack See Rx Instructions .ROUTE .COMPLEX Qty: 74 0RF Rx Instructions: orally per package directions Continued rosuvastatin 10 mg tablet 10 mg PO DAILY multivitamin [Daily Multi-Vitamin] Tablet 1 tablet PO DAILY diphenhydramine HCl [Allergy (diphenhydramine)] 25 mg capsule 50 mg PO HS tamsulosin 0.4 mg capsule 0.4 mg PO DAILY tadalafil [Cialis] 10 mg tablet 10 mg PO DAILY PRN (Reason: sexual activity) Patient Comments: pt states last took it in early January Rx Instructions: administer approximately 30min before sexual activity; do not use more than 1 dose per 24hrs Held aspirin [Adult Low Dose Aspirin] 81 mg tablet,delayed release (DR/EC) 81 mg PO DAILY Hold Instructions: can restart after eliquis is discontinued, or per PCP direction Date of admission: 02/09/25 10:30 Primary Care Provider: PHYSICIAN NOT ON STAFF,NONSTAFF Admitting Provider: Sander Case Attending physician on admission: Sander Case Condition: Stable Hospitalist MIPS Heart Failure (Exclusion) Patient has history of Heart Transplant or Left Ventricular Assistive Device?: No IF YES, STOP HERE Heart Failure (Qualifier) Patient has current or prior documentation of LVEF less than or equal to 40%, or mod/servere depressed LVSF?: No IF NO, STOP HERE
== END 2025-02-09 15:56 | disposition home or self-care (01) ==
LOC: ANHED 09:33 → ANHIMU 14:01 → ANHICU 15:53 → ANHIMU 02-09 04:13
PROVIDERS: Student in an Organized Health Care Education/Training Program; Admitting Provider Internal Medicine; Emergency Provider Physician Assistant; Visit Provider General Practice
DX: I82.411 Acute embolism and thrombosis of right femoral vein (principal); I82.811 Embolism and thrombosis of superficial veins of right lower extremity; I26.99 Other pulmonary embolism without acute cor pulmonale; H26.9 Unspecified cataract; F41.8 Other specified anxiety disorders; M19.90 Unspecified osteoarthritis, unspecified site; Z20.822 Contact with and (suspected) exposure to COVID-19; Z79.82 Long term (current) use of aspirin; Z82.3 Family history of stroke; Z82.49 Family history of ischemic heart disease and other diseases of the circulatory system
CPT/HCPCS: 36415; 71275; 80048; 80053; 83880; 84484; 85025; 85610; 85730; 87637; 93005; 93971; 96374; 99285; A9270; C8929; G0378; J1644; Q9957; Q9967